=== PATIENT | male | born 1995 | race Caucasian/White ===

== ENCOUNTER 2023-01-27 19:28 | Emergency (ER) | payer SELFPAY ==
[2023-01-27 19:32] VITALS: BP 138/81; PULSE 74; RESP 16; TEMP 97.9; BMI 30.4
[2023-01-27] MEDS ORDERED: IBUPROFEN 600 MG TABLET (FP) PO ONE ×2 (21:20→21:22)
== END 2023-01-27 22:55 | disposition home or self-care (01) ==
LOC: JERFT 19:28 → JER 19:28 → JERFT 22:55
DX: R10.30 Lower abdominal pain, unspecified (principal); N50.812 Left testicular pain
CPT/HCPCS: 76856-TC; 76870-TC; 99284-25